=== PATIENT | female | born 1990 | race Hispanic/Latino ===

== ENCOUNTER 2017-02-02 10:32 | Inpatient (IN) | payer OTHER ==
[~2017-02-02] VITALS: Ht 157.5 cm; Wt 84.6 kg
[2017-02-02] MEDS ORDERED: FERR SULFATE325 MG PO (11:36)
[2017-02-02] MEDS ORDERED: PRENATAL1 TA1 PO (11:36)
[2017-02-02] MEDS ORDERED: ZANTAC150 M1 PO (11:37)
[2017-02-05] VITALS (12 sets, daily range): BP systolic 107–134; BP diastolic 42–76
--- NOTE | 2017-02-05 01:00 | NUR ---
PT. ADMITTED TO UNIT FOR SCHEDULED REPEAT DELIVERY. PT. WAS ACCOMPANIED BY SPOUSE. NO DISCOMFORT NOTED. PT. ORIENTED TO ROOM.
[2017-02-05 02:23] LABS: HEMATOCRIT 33.7 % (37.0-47.0); HEMOGLOBIN 11.9 g/dl (12.0-16.0); IMMATURE GRANULOCYTES 0.4 % (0.0-1.0); MEAN CELL VOLUME 89.6 fL CALC (80.0-100.0); MEAN CORPUSCULAR HGB 31.6 pG CALC (26.0-32.0); MEAN CORPUSCULAR HGB CONC 35.3 g/L CALC (32.0-36.0); NEUT# 4.48 thou/uL (2.00-7.15); RED BLOOD COUNT 3.76 mill/uL (4.20-5.60); RED CELL DISTRI WIDTH 13.2 % (11.5-15.5)
[2017-02-05 02:24] LABS: URINE BILIRUBIN - DIPSTICK NEGATIVE (NEGATIVE); URINE BLOOD DIPSTICK NEGATIVE (NEGATIVE); URINE CLARITY CLEAR; URINE COLOR YELLOW; URINE GLUCOSE - DIPSTICK NEGATIVE (NEGATIVE); URINE KETONE NEGATIVE (NEGATIVE); URINE LEUK ESTERASE NEGATIVE (NEGATIVE); URINE NITRITE - DIPSTICK NEGATIVE (Negative); URINE PH 6.5 (4.5-8.0); URINE PROTEIN - DIPSTICK NEGATIVE (NEG-TRACE); URINE UROBILINOGEN - DIPSTICK 0.2 E.U./dL (0.2)
[2017-02-05 02:28] LABS: BARBITURATES NEGATIVE (NEGATIVE); COCAINE NEGATIVE (NEGATIVE); METHADONE NEGATIVE (NEGATIVE); OXCYCODONE NEGATIVE (NEGATIVE); TETRAHYDROCANNABIONOL NEGATIVE (NEGATIVE); TRICYLIC ANTIDEPRESSANTS NEGATIVE (NEGATIVE)
--- NOTE | 2017-02-05 02:30 | NUR ---
30MIN. FHR MONITORING SHOWS FHR BASELINE OF 140 WITH ACCELERATIONS AND NO DECELS. PT. RESTING WITH IN ROOM.PT. C/O HEARTBURN BUT WANTS TO WAIT AND SEE IF RESOLVED WITHOUT MEDICATION.
--- NOTE | 2017-02-05 04:31 | NUR ---
NO FURTHER COMPLAINT OF HEARTBURN. PT ASLEEP. IV LR INFUSING AT 125ML/HR.
--- NOTE | 2017-02-05 07:02 | NUR ---
PT. PREP FOR SURGERY. PUBIC AREA SHAVED,PRE OP MEDS GIVEN ORDERED AND IV FLUID BOLUS IN PROGRESS.
--- NOTE | 2017-02-05 07:02 | NUR ---
EFM OFF OR CREW IS GETTING READY TO TAKE PT BACK. FHR BASELINE 135, MODERATE VARIABILITY, ACCELS PRESENT, NO DECELS. OCCASIONAL CONTRACTIONS PRESENT, PALPATED MILD, 60 SEC LONG, PT DENIES PAIN. INFANT VERY ACTIVE AND DIFFICULT TO MONITOR AT TIMES. PRE AND POST OP TEACHING DONE WITH PT AND SIGNIFICANT OTHER, BOTH VERBALIZED UNDERSTANDING.
--- NOTE | 2017-02-05 07:15 | NUR ---
PT UP TO VOID, THEN SITTING UP. DR. MILLER AT BEDSIDE, SURGICAL SITE MARKED. PT WAS ALSO SEEN BY Nellie PERKINS CRNA THIS MORNING. PT AND SIGNIFICANT OTHER DENY ANY QUESTIONS.
--- NOTE | 2017-02-05 07:25 | NUR ---
PT TAKEN BACK TO OR BY OR CREW AT THIS TIME.
--- NOTE | 2017-02-05 09:50 | NUR ---
PT RECEIVED FROM PACU, TRANSFERED TO BED VIA EZ SLIDE. ASSESSMENT AND VS DONE, STABLE. RATES PAIN 6/10, WILL MEDICATE WITH TORADOL. LOW TRANSVERSE ABDOMINAL DRESSING IS CLEAN, DRY, AND INTACT. PATEL DRAINING CLEAR YELLOW URINE. FUNDUS FIRM AT UMBILICUS WITH LIGHT LOCHIA. SCDS IN PLACE AND ON. IVF RUNNING WITHOUT PROBLEMS. REINFORCED POST OP TEACHING WITH PT, PT VERBALIZED UNDERSTANDING. SEE FUNDAL CHECKS FOR FURTHER DOCUMENTATION.
--- NOTE | 2017-02-05 10:49 | NUR ---
PT RESTING, STATES SHE FEELS VERY SLEEPY. NUBAIN GIVEN IN RECOVERY FOR ITCHING, WITH SOME RELIEF. PT DECLINES NEED FOR FURTHER MEDICATION TO HELP WITH ITCHING. PAIN IS DOWN TO 4/10. DOING SKIN TO SKIN WITH INFANT, POSITIVE BONDING.
--- NOTE | 2017-02-05 12:30 | NUR ---
PT RESTING, ATE SOME OF HER FULL LIQUID TRAY, STATES SHE FELT NAUSEATED A WHILE BACK, BUT DECLINES NEED FOR NAUSEA MEDICATION. SIGNIFICANT OTHER AT BEDSIDE. DENIES ANY NEEDS AT THIS TIME. VS/FUNDAL CHECK STABLE.
--- NOTE | 2017-02-05 14:20 | NUR ---
PT HAD SMALL EMESIS, MEDICATED WITH ZOFRAN. SIGNIFICANT OTHER REMAINS AT BEDSIDE.
--- NOTE | 2017-02-05 15:03 | NUR ---
PT RESTING, STATES SHE NO LONGER HAS NAUSEA. DISCUSSED PLAN OF CARE WITH PT, INCLUDING GETTING OUT OF BED LATER THIS AFTERNOON. PT VERBALIZED UNDERSTANDING.
--- NOTE | 2017-02-05 16:05 | NUR ---
VS DONE, STABLE. MEDICATED WITH TORADOL FOR PAIN, ALSO IN ANTICIPATION TO GET PT UP AND OUT OF BED, PT VERBALIZED UNDERSTANDING, DENIES ANY FURTHER NEEDS.
--- NOTE | 2017-02-05 16:45 | NUR ---
AMANDA GARCIA, PT ASSISTED TO BATHROOM, PERICARE DONE, PANTIES AND PADS PLACED. GOWN CHANGED. PT DID OWN ORAL CARE. PT THEN AMBULATED AROUND THE ROOM, CHANGED INFANT'S CLOTHES AND THEN SAT DOWN IN THE CHAIR. PT TOLERATED ACTIVITY WELL. INSTRUCTED PT TO CALL FOR HELP, AND TO ATTEMPT TO VOID EVERY 2 HOURS. ALSO INSTRUCTED PT THAT A SOFT DIET TRAY WILL BE BROUGHT AND TO EAT SMALL AMOUNTS FOR TONIGHT TO AVOID NAUSEA/VOMITING. PT AND SIGNIFICANT OTHER VERBALIZED UNDERSTANDING.
--- NOTE | 2017-02-05 17:30 | NUR ---
PT CARE ASSUMED, BEDSIDE REPORT RECEIVED FROM Umesh DODGE RN, PT AWAKE AND ALERT, SITTING UP IN CHAIR, DENIES ANY CONCERNS AT THIS TIME, SPOUSE AT ROOMING IN AND AT BEDSIDE, PT AND SPOUSE ENCOURAGED TO CALL NURSE FOR ANY NEEDS OR CONCERNS- BOTH VERBALIZE UNDERSTANDING.
--- NOTE | 2017-02-05 17:34 | NUR ---
BEDSIDE REPORT GIVEN TO Aayush ROCK RN AT THIS TIME.
[2017-02-06] VITALS: BP 104/40
--- NOTE | 2017-02-06 | NUR ---
PT RESTING QUIETLY IN BED W/EYES CLOSED- AROUSES EASILY, DENIES ANY NEEDS OR CONCERNS AT THIS TIME, VSS, IVF CONT INFUSING ORDERED W/OUT DIFFICULTY, WILL CONT TO MONITOR PT.
[2017-02-06 04:00] VITALS: BP 109/40
--- NOTE | 2017-02-06 06:00 | NUR ---
PT RESTING QUIETLY IN BED W/EYES CLOSED- AROUSES EASILY, PT DENIES PAIN AT THIS TIME, DENIES ANY OTHER CONCERNS, LAB DRAWN ORDERED, PT REENCOURAGED TO CALL NURSE FOR ANY NEEDS OR CONCERNS.
[2017-02-06 06:15] LABS: HEMATOCRIT 31.8 % (37.0-47.0); HEMOGLOBIN 11.2 g/dl (12.0-16.0); IMMATURE GRANULOCYTES 0.2 % (0.0-1.0); MEAN CELL VOLUME 90.1 fL CALC (80.0-100.0); MEAN CORPUSCULAR HGB 31.7 pG CALC (26.0-32.0); MEAN CORPUSCULAR HGB CONC 35.2 g/L CALC (32.0-36.0); NEUT# 7.13 thou/uL (2.00-7.15); RED BLOOD COUNT 3.53 mill/uL (4.20-5.60); RED CELL DISTRI WIDTH 13.3 % (11.5-15.5)
--- NOTE | 2017-02-06 07:05 | NUR ---
IN PT ROOM RECIEVED REPORT PT SITS IN BED S/O IN ROOM.
--- NOTE | 2017-02-06 07:30 | NUR ---
PT OOB TO CHANGE INFANT DIAPER, STATES SHE STILL HAS PAIN, OFFERED TO GIVE PT MOTRIN PT STATES SHE WILL WAIT. PT ENC TO BE OOB WALKING MUCH POSSIBLE, TO HELP HER PASS FLATUS. [facility] HAND CARE THEN TO SIT IN BED FOR BREAKFAST.
[2017-02-06 08:50] VITALS: BP 105/53
--- NOTE | 2017-02-06 08:55 | NUR ---
DR MILLER IN TO SEE PT, ABD DISTENDED, SOFT. ENC TO WALK, ORDER FOR MOM RECEIVED.
--- NOTE | 2017-02-06 09:00 | NUR ---
PT WANTS TO SHOWER, OFFERED MOTRIN, PT DECLINES. GIVEN PRUNE JUICE PER REQUEST.
--- NOTE | 2017-02-06 10:16 | NUR ---
PT SHOWERED, MEDICATED FOR PAIN WITH MOTRIN, MOM GIVEN PO. EXPLAINED MED TO PT.
--- NOTE | 2017-02-06 10:34 | NUR ---
PT OOB TO WALK IN HALLWAY WITH INFANT IN CRIB ACCOMPANIED BY S/O.
--- NOTE | 2017-02-06 11:50 | NUR ---
PT SITS ON SIDE OF BED, TALKS WITH VISITORS, MEDICATED FOR PAIN OF 3, PT STATES SHE DOES NOT WANT TO WAIT TIL PAIN GETS BAD.
--- NOTE | 2017-02-06 13:40 | NUR ---
PT STATES SHE CAN FEEL GAS MOVING, ENC TO WALK, STATES PAIN MED HELPED, PT GIVEN WARM DECAF TEA. STATES SHE WANTS TO REST, THEN WILL GET OOB TO WALK, PT ENC TO LIE ON SIDE TO HELP GAS MOVE.
--- NOTE | 2017-02-06 14:05 | NUR ---
PT RESTS WITH EYES CLOSED.
--- NOTE | 2017-02-06 15:30 | NUR ---
PT TALKS WITH VISITORS.
--- NOTE | 2017-02-06 15:57 | NUR ---
PT MEDICATED FOR PAIN SITS IN BED TALKS WITH VISTIORS. PLANS TO WALK SO9ON.
[2017-02-06 16:43] VITALS: BP 110/60
--- NOTE | 2017-02-06 16:50 | NUR ---
PT SITS IN BED, TALKS WITH VISITORS, ABD DISTENDED, BOWEL SDS ACTIVE 4 QUADS, PT ENC TO WALK, STRESSED IMPORTANCE OF WALKING.
--- NOTE | 2017-02-06 17:30 | NUR ---
PT OOB WALKING IN HOLLEY WITH IN CRIB, S/O AT SIDE, PT ENC TO KEEP WALKING.
--- NOTE | 2017-02-06 18:30 | NUR ---
PT STATES SHE HAS BEEN PASSING SOME GAS. PT ENC TO WALK AGAIN LATER.
--- NOTE | 2017-02-06 18:40 | NUR ---
PT ATE DINNER, C/O LOW BACK PAIN, PT TO BATHROOM.
--- NOTE | 2017-02-06 19:10 | NUR ---
REPORT TO ONCOMING NURSE, TO PT ROOM, PT STATES SHE PASSED GAS WHILE SHE WAS IN BATHROOOM. REVIEW PLAN OF CARE.
[2017-02-06 19:18] VITALS: BP 111/61
--- NOTE | 2017-02-06 19:18 | NUR ---
INTRODUCED SELF TO PT. ASSESSMENT COMPLETED CHARTED. PT PASSING FLATUS. ENCOURAGED PT TO AMBULATE IN HALLWAY PRIOR TO BED. INCENTIVE SPIROMETER AT BEDSIDE. ENCOURAGED PT TO COUGH AND DEEP BREATH AND USE INCENTIVE SPIROMETER 10 TIMES EVERY HOUR. ICE WATER PROVIDED. DISCHARGE TEACHING REVIEWED VERBALLY WITH PT- VERBALIZED UNERSTANDING. PT AWARE TO TRY TO WATCH TIGR VIDEOS PRIOR TO DISCHARGE. SIGNIFICANT OTHER AT BEDSIDE. PT C/O PAIN- MEDICATED ORDERED. PT DENIES ANY OTHER NEEDS AT THIS TIME. ENCOURAGED PT TO CALL WITH ANY NEEDS OR CONCERNS.
--- NOTE | 2017-02-06 20:36 | NUR ---
PT AMBULATING IN HALLWAY PUSHING INFANT IN OPEN CRIB AND SIGNIFICANT OTHER AT SIDE IN STABLE CONDITION. PT AMBULATED CIRCULAR HALLWAY THREE TIMES. PT DENIES ANY NEEDS.
--- NOTE | 2017-02-06 22:09 | NUR ---
PT RESTING QUIETLY IN BED. PT C/O PAIN- MEDICATED ORDERED. SNACK PROVIDED. SIGNIFICANT OTHER AT BEDSIDE. TIGR VIDEO STARTED AND EDUCATED ON HOW TO START OTHER VIDEOS. PT DENIES ANY OTHER NEEDS. ENCOURAGED TO CALL WITH NEEDS.
--- NOTE | 2017-02-07 00:10 | NUR ---
PT DANGLED AT BEDSIDE. SIGNIFICANT OTHER STANDING NEXT TO OPEN CRIB WITH INFANT IN OPEN CRIB IN STABLE CONDITION. PT DENIES ANY NEEDS. ENCOURAGED PT TO CALL WITH ANY NEEDS OR CONCERNS.
--- NOTE | 2017-02-07 02:51 | NUR ---
PT RESTING IN BED QUIETLY. PT C/O PAIN- MEDICATED ORDERED. SIGNIFICANT OTHER AT BEDSIDE. PT DENIES ANY OTHER NEEDS AT THIS TIME. ENCOURAGED PT TO CALL WITH ANY NEEDS.
--- NOTE | 2017-02-07 07:00 | NUR ---
PATIENT IN RESTROOM DURING BEDSIDE HANDOVER. S/O AWAKE IN BEDSIDE COT.
[2017-02-07 07:15] VITALS: BP 117/55
--- NOTE | 2017-02-07 07:15 | NUR ---
PATIENT AMBULATING WITHOUT DIFICULTY. ASSESSMENT DONE CHARTED. ADMITS TO INCISIONAL PAIN BUT DECLINES PAIN MEDICATION AT THIS TIME. PREFERS TO HAVE BOTH LORTAB AND MOTRIN TOGETHER WHEN THEY ARE DUE. INSTRUCTED ON AMBULATING MORE, DRINKING MORE FLUIDS TOLERATING AND DRINKING PRUNE JUICE AT HOME TO ENSURE BOWEL MOVEMENT, TO COUNTERACT THE SIDE EFFECT OF LORTAB. PATIENT ASLO INSTRUCTED ON PREVENTION AND RECOGNITION OF DVT AND PULMONARY EMMBOLUS. VERBALISE UNDERSTANDING OF SAME. VITAL SIGNS WNL.
--- NOTE | 2017-02-07 08:40 | NUR ---
AMBULATING IN HALLWAY WITH S/O. TOLERATING SAME WELL.
[2017-02-07] MEDS ORDERED: IBUPROFEN600 MG PO (09:05)
[2017-02-07] MEDS ORDERED: LORTAB 7.57.5 MG PO (09:05)
--- NOTE | 2017-02-07 09:31 | NUR ---
patient stated she had a bm. monograph for motrin and lortab given and explained. also given prescriptions for lortab and motrin and instructed to continue taking vitamins and ferrous sulfate until finished. patient verbalise understanding.
--- NOTE | 2017-02-07 11:30 | NUR ---
Discharge instructions given. Patient verbalizes understanding of same. Discharged in stable condition via Wheelchair to Home with significant other. All belongings sent with pt.
== END 2017-02-07 11:30 | disposition home or self-care (01) | DRG 766 ==
LOC: OB 02-05 00:32 → EDUNIT# 02-05 07:30 → OB 02-05 07:30
PROVIDERS: ADMIT Obstetrics & Gynecology; ATTEND Obstetrics & Gynecology
PROC: 10D00Z1 Extraction of Products of Conception, Low, Open Approach (ICD-10-PCS; principal; 2017-02-05)
DX: O34.211 Maternal care for low transverse scar from previous cesarean delivery (principal); N85.8 Other specified noninflammatory disorders of uterus; Z3A.39 39 weeks gestation of pregnancy; Z37.0 Single live birth
CPT/HCPCS: J2270